=== PATIENT | male | born 1995 | race African-American/Black ===

== ENCOUNTER 2017-09-05 13:27 | Emergency (ER) | payer SELFPAY | END 2017-09-05 14:14 | disposition home or self-care (01) | LOC: BURERS 13:27 | DX: J06.9 Acute upper respiratory infection, unspecified (principal); F17.210 Nicotine dependence, cigarettes, uncomplicated | CPT/HCPCS: 99283 ==

== ENCOUNTER 2024-05-30 22:43 | Emergency (ER) | payer SELFPAY ==
[2024-05-30] MEDS ORDERED: predniSONE 20 MG TAB ONE (23:24)
[2024-05-30] MEDS ORDERED: Amoxicillin/Potassium Clav 875 MG TAB ONE (23:24)
[2024-05-30] MEDS ORDERED: Ibuprofen 200 MG TAB ONE (23:25)
== END 2024-05-30 23:34 | disposition home or self-care (01) ==
LOC: BURERS 22:43
DX: H66.92 Otitis media, unspecified, left ear (principal); F17.290 Nicotine dependence, other tobacco product, uncomplicated
CPT/HCPCS: 87081; 87428; 87430; 99283; J7512

== ENCOUNTER 2024-05-31 05:38 | Emergency (ER) | payer SELFPAY ==
[2024-05-31] MEDS ORDERED: predniSONE 20 MG TAB ONE (06:21)
[2024-05-31] MEDS ORDERED: Ketorolac Tromethamine 30 MG (1 mL) VIAL ONE (06:21)
[2024-05-31] MEDS ORDERED: Amoxicillin/Potassium Clav 875 MG TAB ONE (06:21)
== END 2024-05-31 06:40 | disposition home or self-care (01) ==
LOC: BURERS 05:38
DX: H66.92 Otitis media, unspecified, left ear (principal)
CPT/HCPCS: 96372; 99282; J1885; J7512